=== PATIENT | female | born 2000 | race Caucasian/White ===

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

== ENCOUNTER 2020-03-10 16:41 | Outpatient (REF) | payer MEDICAID, SELFPAY ==
--- NOTE | 2020-03-10 15:00 | PAPFT_PTH ---
PATIENT: RAGINI SO LOC: [facility]#:[id number] AGE/SX: 19/F ROOM: RE03/10/[address]: Geraldine Hewitt : 2000 BED: DIS: 03/10/2020 SPEC #: [id number] RECD: 03/13/20 12:55 STATUS: LILLIAN LANGLEY #: [id number] JOSHUA: 03/10/20 15:[address]: Geraldine Montgomery DEPT: [facility] Cytology RECD BY: Nuris Stone ENTERED: 03/13/20 12:55 SP TYPE: PAPFT OTHR DR: Cheryle Chatman Tissues: 1 - CX/ENDOCX FOR PAP SMEARS Procedures: PAP THIN PREP/[facility] Screening Comments: [id number]
== END 2020-03-10 17:01 ==
LOC: NCHCN 16:41
PROVIDERS: PCP Nurse Practitioner Family; Visit Provider Nurse Practitioner Family
DX: Z12.4 Encounter for screening for malignant neoplasm of cervix (principal)
CPT/HCPCS: 88142